=== PATIENT | female | born 1995 | race Caucasian/White ===

== ENCOUNTER 2021-11-06 22:48 | Emergency (ER) | payer OTHER ==
[2021-11-06] MEDS ORDERED: predniSONE 20 MG Tab PO ONE (22:49)
[2021-11-07] MEDS ORDERED: Famotidine 20 MG Tab PO ONE (00:03)
[2021-11-07] MEDS ORDERED: predniSONE 20 MG Tab PO ONE (00:03)
[2021-11-07] MEDS ORDERED: diphenhydrAMINE 50 MG Cap PO ONE (00:03)
== END 2021-11-07 00:25 | disposition home or self-care (01) ==
LOC: FB.ED 22:48
DX: L50.0 Allergic urticaria (principal); Z88.1 Allergy status to other antibiotic agents; Z79.01 Long term (current) use of anticoagulants
CPT/HCPCS: 99283; A9270-GY; J7512